=== PATIENT | female | born 1970 | race Caucasian/White ===

== ENCOUNTER 2018-12-15 13:16 | Emergency (ER) | payer BC ==
[~2018-12-15] VITALS: Ht 170.2 cm; Wt 104.3 kg
[2018-12-15 13:16] VITALS: BP_SYST 165
[~2018-12-15 13:16] MED LIST: CANA1TAB4 PO; LOSA50TA3 PO
[2018-12-15] MEDS ORDERED: NACL 0.9% 1,000 ML IV ONE (13:28)
[2018-12-15 13:52] LABS: BASOPHILS # (AUTO) 0.1 K/uL (0.0-0.2); EOSINOPHILS # (AUTO) 0.6 K/uL (0.0-0.4); EOSINOPHILS % (AUTO) 4.9 % (0.0-4.0); HEMATOCRIT 46.4 % (36-48); HEMOGLOBIN 15.2 g/dL (12.0-16.0); LYMPHOCYTES % (AUTO) 23.4 % (20.5-51.5); MEAN CORPUSCULAR HEMOGLOBIN 28 pg (27-31); MEAN CORPUSCULAR HGB CONC 33 % (32-36); MEAN CORPUSCULAR VOLUME 86 fL (79.0-98.0); MONOCYTES # (AUTO) 0.5 K/uL (0.0-1.0); MONOCYTES % (AUTO) 3.6 % (1.7-9.3); NEUTROPHILS # (AUTO) 8.5 K/uL (1.8-7.7); NEUTROPHILS % (AUTO) 67.1 % (40.0-70.0); PLATELET COUNT (AUTO) 297 K/uL (130-430); RED BLOOD CELL COUNT(AUTO) 5.41 MIL/uL (4.2-6.2); RED CELL DISTRIBUTION WIDTH 14.3 % (9.0-15.0); WHITE BLOOD COUNT (AUTO) 12.7 K/uL (4.8-10.8)
[2018-12-15 14:11] LABS: ALANINE AMINOTRANSFERASE 45 U/L (12-78); ALBUMIN 3.5 g/dL (3.4-4.8); ANION GAP 12 (5-15); ASPARTATE AMINOTRANSFERASE 20 U/L (10-37); CALCIUM 9.1 mg/dL (8.4-11.0); CHLORIDE 99 mmol/L (98-107); CREATININE 0.73 mg/dL (0.55-1.30); GLUCOSE 260 mg/dL (70-99); POTASSIUM 3.8 mmol/L (3.5-5.1); SODIUM SERUM 137 mmol/L (136-145); TOTAL BILIRUBIN 0.4 mg/dL (0.0-1.0); UREA NITROGEN, BLOOD 10 mg/dL (8-21)
[2018-12-15 14:13] LABS: GFR AFRICAN AMERICAN 110 mL/min (>90)
[2018-12-15 14:45] VITALS: BP_SYST 157
== END 2018-12-15 14:45 | disposition home or self-care (01) ==
LOC: SED 13:16
DX: R04.0 Epistaxis (principal); F41.9 Anxiety disorder, unspecified; R07.89 Other chest pain; E11.9 Type 2 diabetes mellitus without complications; I10 Essential (primary) hypertension; Z90.49 Acquired absence of other specified parts of digestive tract; Z87.442 Personal history of urinary calculi; Z79.899 Other long term (current) drug therapy
CPT/HCPCS: 36415; 71045; 80053; 84484; 85025; 99284; J7030

== ENCOUNTER 2020-06-02 10:29 | Emergency (ER) | payer OTHER, SELFPAY ==
[~2020-06-02] VITALS: Ht 170.2 cm; Wt 111.1 kg
[2020-06-02 10:30] VITALS: BP_SYST 129
== END 2020-06-02 11:02 | disposition home or self-care (01) ==
LOC: SED 10:29
DX: U07.1 COVID-19 (principal); I10 Essential (primary) hypertension; E11.9 Type 2 diabetes mellitus without complications; Z79.899 Other long term (current) drug therapy
CPT/HCPCS: 99283

== ENCOUNTER 2020-11-03 11:32 | Emergency (ER) | payer OTHER, SELFPAY ==
[~2020-11-03] VITALS: Ht 170.2 cm; Wt 117.9 kg
--- NOTE | 2020-11-03 11:32 | NUR ---
Patient to ER bed 7 to gown for evaluation. Side rails up.
--- NOTE | 2020-11-03 11:35 | NUR ---
ekg done and given to
[2020-11-03 11:36] VITALS: BP_SYST 150
--- NOTE | 2020-11-03 11:38 | NUR ---
pt arrives from home w/ c/o left sided chest pain /, intermittent since Saturday. Pt has had a normal angiogram in the past. EKG done and given to
--- NOTE | 2020-11-03 11:43 | NUR ---
ER at bedside examining patient.
[2020-11-03] MEDS ORDERED: HYDR-500 PO (11:55)
[2020-11-03 12:16] VITALS: BP_SYST 150
--- NOTE | 2020-11-03 12:29 | NUR ---
Patient given written and verbal discharge instructions and verbalizes understanding. ER MD discussed with patient the results and treatment provided. Patient in stable condition. ID arm band removed. Rx of NONE given. Patient educated on pain management and to follow up with PMD. Pain Scale 0/10. Opportunity for questions provided and answered. Medication side effect fact sheet provided.
== END 2020-11-03 12:29 | disposition home or self-care (01) ==
LOC: SED 11:32
DX: R07.89 Other chest pain (principal); I10 Essential (primary) hypertension; E11.9 Type 2 diabetes mellitus without complications
CPT/HCPCS: 93005; 99283

== ENCOUNTER 2021-05-16 12:44 | Emergency (ER) | payer OTHER ==
[~2021-05-16] VITALS: Ht 172.7 cm; Wt 113.4 kg
[~2021-05-16 12:44] MED LIST changes: +HYDR-500 PO
[2021-05-16 12:49] VITALS: BP_SYST 115
[2021-05-16] MEDS ORDERED: ASPIRIN 81 MG TAB.CHEW PO ONE (15:30)
[2021-05-16 15:42] LABS: BASOPHILS # (AUTO) 0.1 K/uL (0.0-0.2); BASOPHILS % (AUTO) 0.7 % (0.0-2.0); EOSINOPHILS # (AUTO) 0.3 K/uL (0.0-0.4); EOSINOPHILS % (AUTO) 2.1 % (0.0-4.0); HEMATOCRIT 41.5 % (36-48); LYMPHOCYTES # (AUTO) 3.9 K/uL (1.0-5.5); LYMPHOCYTES % (AUTO) 32.5 % (20.5-51.5); MEAN CORPUSCULAR HEMOGLOBIN 29 pg (27-31); MEAN CORPUSCULAR HGB CONC 34 % (32-36); MEAN CORPUSCULAR VOLUME 85 fL (79.0-98.0); MONOCYTES # (AUTO) 0.6 K/uL (0.0-1.0); MONOCYTES % (AUTO) 5.1 % (1.7-9.3); NEUTROPHILS # (AUTO) 7.2 K/uL (1.8-7.7); NEUTROPHILS % (AUTO) 59.6 % (40.0-70.0); PLATELET COUNT (AUTO) 279 K/uL (130-430); RED BLOOD CELL COUNT(AUTO) 4.88 MIL/uL (4.2-6.2); WHITE BLOOD COUNT (AUTO) 12.1 K/uL (4.8-10.8)
[2021-05-16 16:00] LABS: CALCIUM 9.4 mg/dL (8.4-11.0); CREATININE 0.8 mg/dL (0.55-1.30); POTASSIUM 4.2 mmol/L (3.5-5.1)
[2021-05-16 16:14] LABS: ALBUMIN 3.5 g/dL (3.4-4.8); TOTAL BILIRUBIN 0.2 mg/dL (0.0-1.0)
[2021-05-16 17:38] VITALS: BP_SYST 126
== END 2021-05-16 17:38 | disposition home or self-care (01) ==
LOC: SED 12:44
DX: R07.2 Precordial pain (principal); R05.9 Cough, unspecified; I10 Essential (primary) hypertension; E11.9 Type 2 diabetes mellitus without complications; Z79.899 Other long term (current) drug therapy
CPT/HCPCS: 36415; 71045; 80053; 83880; 84484; 85025; 93005; 99285

== ENCOUNTER 2022-09-18 18:32 | Emergency (ER) | payer OTHER ==
[~2022-09-18] VITALS: Ht 172.7 cm; Wt 112.5 kg
[2022-09-18 19:10] VITALS: BP_SYST 159
--- NOTE | 2022-09-18 19:15 | NUR ---
Patient to ER bed 04 to gown for evaluation. Side rails up. Report given to MANJU ALVES.
--- NOTE | 2022-09-18 19:33 | NUR ---
pt presents to ed with c/o left rib pain that radiates to left arm pit and to back, pt states it feels similar to a kidney stone, pt has hx of kidney stone. pt states the pain as dull achy and 9 out 10 pain. pt in nad, face a bit flushed afebrile, even unlabored respirations connected to vs monitor.
[2022-09-18] MEDS ORDERED: ONDANSETRON 4 MG ODT TAB PO ONE (20:15)
[2022-09-18] MEDS ORDERED: MORPHINE 4 MG INJ. 4 MG/ML VIAL IM ONE (20:15)
[2022-09-18 20:43] LABS: BILIRUBIN,URINE NEGATIVE (NEGATIVE); CLARITY/URINE CLEAR (CLEAR); COLOR,URINE YELLOW (YELLOW); GLUCOSE,URINE 3+ (NEGATIVE); KETONES,URINE 1+ (NEGATIVE); LEUKOCYTE ESTERASE ,URINE NEGATIVE (NEGATIVE); NITRITE, URINE NEGATIVE (NEGATIVE); PH,URINE 5.5 (5.0-8.0); PROTEIN URINE NEGATIVE (NEGATIVE); UROBILINOGEN,URINE 0.2 (0.2-1.0)
[2022-09-18 20:44] LABS: BLOOD, URINE TRACE (NEGATIVE)
[2022-09-18 20:54] LABS: BACTERIA,URINE FEW /HPF (None Seen); WBC,URINE 0-3 /HPF (0-3)
[2022-09-18 20:55] LABS: YEAST,URINE Few /HPF (None Seen)
[2022-09-18 20:59] LABS: HCG,QUAL RESULT NEGATIVE (NEGATIVE)
--- NOTE | 2022-09-18 21:09 | NUR ---
pt went to ct and was medicated, pt states pain relief worked and is now at a 1 on the 1-10 pain scale, best friend at bedside, connected to monitor.
[2022-09-18 21:10] LABS: BASOPHILS # (AUTO) 0.1 K/uL (0.0-0.2); BASOPHILS % (AUTO) 0.7 % (0.0-2.0); EOSINOPHILS # (AUTO) 0.1 K/uL (0.0-0.4); HEMOGLOBIN 14.2 g/dL (12.0-16.0); LYMPHOCYTES # (AUTO) 3.1 K/uL (1.0-5.5); MEAN CORPUSCULAR HEMOGLOBIN 29 pg (27-31); MEAN CORPUSCULAR HGB CONC 34 % (32-36); MEAN CORPUSCULAR VOLUME 86 fL (79.0-98.0); MONOCYTES # (AUTO) 0.7 K/uL (0.0-1.0); MONOCYTES % (AUTO) 5.5 % (1.7-9.3); NEUTROPHILS # (AUTO) 9.4 K/uL (1.8-7.7); NEUTROPHILS % (AUTO) 69.8 % (40.0-70.0); PLATELET COUNT (AUTO) 246 K/uL (130-430); RED BLOOD CELL COUNT(AUTO) 4.88 MIL/uL (4.2-6.2); RED CELL DISTRIBUTION WIDTH 13.3 % (9.0-15.0); WHITE BLOOD COUNT (AUTO) 13.4 K/uL (4.8-10.8)
[2022-09-18 21:27] LABS: CALCIUM 9.3 mg/dL (8.4-11.0); CREATININE 0.91 mg/dL (0.55-1.30)
[2022-09-18] MEDS ORDERED: SULFAMETHOXAZOLE/TRIMETHOPR DS 1 TABLET PO ONE (21:30)
[2022-09-18 21:32] LABS: ALBUMIN 3.4 g/dL (3.4-4.8); TOTAL BILIRUBIN 0.3 mg/dL (0.0-1.0)
[2022-09-18] MEDS ORDERED: DICL75TA5 PO (21:55)
[2022-09-18] MEDS ORDERED: SULF1TAB48 PO (21:55)
[2022-09-18] MEDS ORDERED: ONDA-8 TL (21:55)
[2022-09-18 22:46] VITALS: BP_SYST 133
--- NOTE | 2022-09-18 22:48 | NUR ---
Patient given written and verbal discharge instructions and verbalizes understanding. ER MD discussed with patient the results and treatment provided. Patient in stable condition. ID arm band removed. Rx of VOLTAREN, ZOFRAN, BACTRIM DS given. Patient educated on pain management, ANTIBIOTIC TREATMENT and to follow up with PMD. Pain Scale . Opportunity for questions provided and answered. Medication side effect fact sheet provided.
== END 2022-09-18 22:25 | disposition home or self-care (01) ==
LOC: SED 18:32
DX: N12 Tubulo-interstitial nephritis, not specified as acute or chronic (principal); E11.9 Type 2 diabetes mellitus without complications; I10 Essential (primary) hypertension; R10.12 Left upper quadrant pain; R07.9 Chest pain, unspecified; R06.02 Shortness of breath; Z79.899 Other long term (current) drug therapy
CPT/HCPCS: 99285; 74176; 80053; 81000; 84703; 83690; 85025; 36415; 76376; 81025; 96372; Q0162; J2270